=== PATIENT | male | born 1965 | race Caucasian/White ===

== ENCOUNTER 2023-09-09 02:02 | Day surgery (SDC) | payer BC, SELFPAY ==
[2023-08-22 12:25] VITALS: BMI 32.5
--- NOTE | 2023-09-06 09:06 | SUR.PREOP ---
Patient called regarding upcoming procedure. Reviewed preop instructions, appointment times, and procedure prep.
[2023-09-09 07:58] VITALS: BP 155/92; PULSE 98; RESP 18; TEMP 36.2; O2SAT 98; BMI 32.1
[2023-09-09] MEDS: LACTATED RINGERS 1,000 ML 150 ML IV CONT (08:00)
--- NOTE | 2023-09-09 08:16 | P.HP_ITS ---
History of Present Illness History of Present Illness Consent: Risks, benefits, and alternatives have been discussed and questions answered. Patient agrees to proceed with procedure. Chief complaint: hx of colon polyps Narrative: Robbie Mccoy is a 58 year old male Presents for screening colonoscopy. Patient has a history of colon polyps removed elsewhere 5 years ago. Patient's current weight appetite and bowel movements are normal. Patient denies abd ominal pain. He has had no bleeding. Family history noncontributory. Review of Systems Review of Systems: Review of systems is noncontributory. [facility] Social History Social History Smoking packs per day: 1 Smoking cigarettes per day: 20.0 Years smoked: 40 Smoking pack-years: 40.00 Smoking status: Current every day smoker Meds Home Medications and Allergies Home Medications Medication Instructions Recorded Confirmed Type felodipine 5 mg tablet,extended 5 mg PO DAILY 08/22/23 09/09/23 History release 24 hr losartan 100 1 tablet PO DAILY 08/22/23 09/09/23 History mg-hydrochlorothiazide 25 mg tablet metformin 500 mg tablet 500 mg PO DAILY 08/22/23 09/09/23 History simvastatin 40 mg tablet 40 mg PO DAILY 08/22/23 09/09/23 History Allergies Allergy/AdvReac Type Severity Reaction Status Date / Time No Known Allergies Allergy Verified 09/09/23 07:56 Vital Signs Vital Signs - 24 hr 09/09/23 07:58 Temperature 97.1 F L Pulse Rate 98 Respiratory Rate 18 Blood Pressure 155/92 H Pulse Oximetry 98 Oxygen Delivery Room Air Exam Narrative: Physical exam reveals patient to be alert. Vital signs stable. HEENT exam is unremarkable. Patient is anicteric. Lungs are clear to auscultation and percussion. Heart is without murmur or extra sounds. Abdomen bowel sounds are present soft nontender with no organomegaly. Digital external rectal exam normal. Assessment and Plan Assessment and plan (1) History of colon polyps: Code(s): Z86.010 - Personal history of colonic polyps Status: Acute Assessment and Plan: Patient has a history of colon polyps. Plan for surveillance colonoscopy now and consider this at 5 year intervals.
[2023-09-09 08:22] LABS: Glucose Point of Care 146 mg/dl (65-105)
--- NOTE | 2023-09-09 08:31 | P.PNAN_ITS ---
Anes - Initial Pre Proc Eval Procedure: Operation Date: 09/09/23 09:00 Proposed Procedures p Colonoscopy - Zak Ferrell MD Date/Time: 09/09/23 08:31 Surgeon: Zak Ferrell MD Pre Op Diagnosis: hx of colon polyps Patient Data Age: 58 Gender: M Height: 1.75 m Weight: 98.8 kg Last Vital Signs Temp 36.2 C L 09/09/23 07:58 Pulse 98 09/09/23 07:58 Resp 18 09/09/23 07:58 BP 155/92 H 09/09/23 07:58 Pulse Ox 98 09/09/23 07:58 O2 Del Method Room Air 09/09/23 07:58 Allergies Allergy/AdvReac Type Severity Reaction Status Date / Time No Known Allergies Allergy Verified 09/09/23 07:56 Home Medications Medication Instructions Recorded Confirmed Type felodipine 5 mg tablet,extended 5 mg PO DAILY 08/22/23 09/09/23 History release 24 hr losartan 100 1 tablet PO DAILY 08/22/23 09/09/23 History mg-hydrochlorothiazide 25 mg tablet metformin 500 mg tablet 500 mg PO DAILY 08/22/23 09/09/23 History simvastatin 40 mg tablet 40 mg PO DAILY 08/22/23 09/09/23 History Laboratory Tests 09/09/23 08:14 POC Capillary Glucose 146 H mg/dl (65-105) Patient hx anesthesia problems: none Family hx anesthesia problems: none Results Review: All pre-operative results and documents have been reviewed as part of the pre- operative evaluation. [facility] Social History Social History Smoking packs per day: 1 Smoking cigarettes per day: 20.0 Years smoked: 40 Smoking pack-years: 40.00 Smoking status: Current every day smoker Anes - Eval Final PreProcedure Day of Procedure 09/09/23 08:31 Patient weight: obese Heart: regular rate and rhythm Lungs: decreased breath sounds Airway: Mallampati scale class II Neurological: alert and oriented Last oral intake: >/= 8 hours ASA classification: III Emergent: no Anesthetic plan: proceed Anesthesia type and monitoring: general GIVS and standard monitoring Results Review: All pre-operative results and documents have been reviewed as part of the pre- operative evaluation. Informed Consent: The patient's anesthetic plan and its attendant risks and benefits were discussed with the patient/family/POA. Questions were solicited and answers provided to the satisfaction of the patient/family/POA.
[2023-09-09 09:05] VITALS: BP 104/62; PULSE 73; RESP 20; O2SAT 96
[2023-09-09 09:15] VITALS: BP 107/72; PULSE 74; RESP 22; O2SAT 95
[2023-09-09 09:25] VITALS: BP 129/89; PULSE 70; RESP 20; O2SAT 95
== END 2023-09-09 09:40 | disposition home or self-care (01) ==
PROVIDERS: PCP Family Medicine; Visit Provider Internal Medicine Gastroenterology
PROC: 0DJD8ZZ Inspection of Lower Intestinal Tract, Via Natural or Artificial Opening Endoscopic (ICD-10-PCS; CPT 45378; principal; 2023-09-09 09:00)
DX: Z12.11 Encounter for screening for malignant neoplasm of colon (principal); Z86.010 Personal history of colon polyps; F17.210 Nicotine dependence, cigarettes, uncomplicated; Z79.84 Long term (current) use of oral hypoglycemic drugs; E66.9 Obesity, unspecified; Z68.32 Body mass index [BMI] 32.0-32.9, adult
CPT/HCPCS: 45378; 82948; J2704; J7120